=== PATIENT | male | born 1995 | race Caucasian/White ===

== ENCOUNTER 2017-04-20 02:46 | Emergency (ER) | payer SELFPAY ==
[~2017-04-20] VITALS: Ht 177.8 cm; Wt 81.0 kg
[2017-04-20] MEDS ORDERED: ONDANSETRON HCL 4MG/2ML VIAL IV STA (03:12)
[2017-04-20] MEDS ORDERED: KETOROLAC 30MG/ML VIAL IV STA (03:12)
[2017-04-20] MEDS ORDERED: SODIUM CHLORIDE 0.9% 1,000 ML IV ONE (03:12)
[2017-04-20] MEDS ORDERED: MORPHINE SULFATE 4 MG/ML CPJ (NOT FOR IM USE) IV STA (03:12)
[2017-04-20] MEDS ORDERED: FENTANYL CITRATE/PF 50MCG/ML 2ML VIAL IV ONE (03:15)
[2017-04-20] MEDS ORDERED: KETAMINE HCL 50 MG/ML 10ML IV ONE (03:15)
[2017-04-20] MEDS ORDERED: MIDAZOLAM HCL 2 MG/2 ML VIAL IV ONE (03:15)
[2017-04-20] MEDS ORDERED: MIDAZOLAM HCL 2 MG/2 ML VIAL ONE (04:42)
[2017-04-20] MEDS ORDERED: PROPOFOL 200MG/20ML VIAL IV ONE (05:00)
[2017-04-20 07:14] VITALS: BP 126/59
== END 2017-04-20 08:43 | disposition home or self-care (01) ==
LOC: ER 02:46
DX: S43.015A Anterior dislocation of left humerus, initial encounter (principal); W01.0XXA Fall on same level from slipping, tripping and stumbling without subsequent striking against object, initial encounter; Y93.89 Activity, other specified; Y92.018 Other place in single-family (private) house as the place of occurrence of the external cause
CPT/HCPCS: 23650; 73030; 96361; 96374; 96375; 99152; 99285; J1885; J2250; J2270; J2405; J3010; J3490; J7030; Z7610; A4565; J2704